=== PATIENT | male | born 1955 | race Caucasian/White ===

== ENCOUNTER 2016-08-15 08:04 | Emergency (ER) | payer BC ==
[2016-08-15 08:11] VITALS: BP 184/81; PULSE 85; RESP 20; TEMP 97.8
--- NOTE | 2016-08-15 08:20 | ED ---
Extremity Problem HPI - General Chief complaint: Extremity Problem,Nontraumatic Stated complaint: Heel Pain Time Seen by Provider: 08/15/16 08:11 Source: patient, RN notes reviewed Mode of arrival: wheelchair Limitations: no limitations - History of Present Illness Initial comments: 60-year-old male presents to the emergency department with a chief complaint of right foot pain. Patient states this started last few days. Patient states he walks he has pain when he rests he has no pain. Patient states he gets about 8- 9 out of 10. Patient states it pulls on the bottom of his foot. Patient denies any falls or injury. Patient denies any redness or swelling to the area. Patient states that he didn't do anything due to the fact that he is aware of. Patient states the pain started on Tuesday. Patient denies any leg swelling or any calf pain with this. Patient states she was concerned due to the continued pain.that he should be evaluated.Patient denies any recent fever, chills, shortness of breath, chest pain, back pain, abdominal pain, nausea vomiting, numbness or tingling, dysuria or hematuria, constipation or diarrhea, headaches or visual changes, or any other current symptoms. - Related Data Home Medications Medication Instructions Recorded Confirmed INSULIN LISPRO (HumaLOG) [HumaLOG] 0 units SQ AC-TID 06/27/15 09/01/15 Insulin Glargine [Lantus] 38 unit SQ HS 06/27/15 09/01/15 Levothyroxine Sodium [Tirosint] 100 mcg PO QAM 06/27/15 08/27/15 amLODIPine [Norvasc] 10 mg PO DAILY 06/27/15 08/27/15 cloNIDine HCL [Catapres] 0.5 mg PO BID 06/27/15 08/27/15 glipiZIDE [Glucotrol] 10 mg PO AC-BID 06/27/15 09/01/15 Atorvastatin [Lipitor] 80 mg PO HS 08/27/15 09/01/15 Enalapril [Vasotec] 2.5 mg PO BID 08/27/15 08/27/15 Febuxostat [Uloric] 40 mg PO HS 08/27/15 09/01/15 Ranitidine HCl [Zantac] 300 mg PO HS 08/27/15 08/27/15 Nystatin 100,000 Unit/gm Powd 1 applic TOPICAL BID 09/02/15 09/02/15 [Mycostatin Powder] Previous Rx's Medication Instructions Recorded Docusate [Colace] 100 mg PO BID #60 capsule 09/03/15 HYDROcodone/APAP 10-325MG [[place] 1 - 2 each PO Q4-6H PRN #90 tab 09/03/15 10] Warfarin [Coumadin] 2.5 mg PO DAILY #27 tab 09/03/15 Diazepam [Valium] 5 mg PO TID PRN #40 tab 09/04/15 Allergies Allergy/AdvReac Type Severity Reaction Status Date / Time ibuprofen [From Motrin] AdvReac can't take Verified 08/15/16 08:11 due to kidney problems Review of Systems ROS Statement: Those systems with pertinent positive or pertinent negative responses have been documented in the HPI. ROS Other: All systems not noted in ROS Statement are negative. Past Medical History Past Medical History: Diabetes Mellitus, Deep Vein Thrombosis (DVT), GERD/Reflux , Hypertension, Sleep Apnea/CPAP/BIPAP, Thyroid Disorder Additional Past Medical History / Comment(s): 05/14/15 Pt is a direct admission for septic arthritis L knee. Other hx: DVT 05/2012 L popliteal vein, chronic kidney disease, atrophic L kidney from , L and R kidney stones which he has had surgically removed and has also passed on his own, , BPH, hypothyroidism , MIGUEL ANGEL with CPAP use (10L/min), DJD, obesity, acute anemia from blood loss in the past possibley related to CKD, bilateral feet neuropathy, OA bilaeral knees and hands, carpal tunnel bilaterally, hypokalemia in past, occasional swelling of feet, [place] L ear due to hole in eardrum. super gout History of Any Multi-Drug Resistant Organisms: None Reported Past Surgical History: Ear Surgery, Joint Replacement, Orthopedic Surgery Additional Past Surgical History / Comment(s): 04/25/15 L knee injection, 2012 L kidney lithrotripsy, L kidney stones removed surgically, L eardrum patch which then blew, L achilles tendon repair, bilateral cataract removal, colonoscopy with benign polypectomy, L knee bone chips removed. fluid removed left knee from gout, total left knee 09/01/15 Past Anesthesia/Blood Transfusion Reactions: Postoperative Nausea & Vomiting ( PONV) Additional Past Anesthesia/Blood Transfusion Reaction / Comment(s): Pt had PONV following ear surgery only. He has MIGUEL ANGEL and uses CPAP at 10L/minute Past Psychological History: No Psychological Hx Reported Additional Psychological History / Comment(s): Pt resides with his spouse. He is normally independent. 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 He uses no assistive device. He drives. They have no children. He has no experience. No international travel. No animal exposures. 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 Smoking Status: Never smoker Past Alcohol Use History: Rare Past Drug Use History: None Reported - Past Family History Brother(s) Family Medical History: Cancer Father Family Medical History: Diabetes Mellitus Additional Family Medical History / Comment(s): Father after a brown recluse spider bite complication at age 72 yrs. Mother Family Medical History: Cancer Additional Family Medical History / Comment(s): Mother is living. She had breast cancer. General Exam - General Exam Comments Initial Comments: General: The patient is awake and alert, in no distress, and does not appear acutely ill. Neck: The neck is supple, there is no tenderness. Cardiovascular: There is a regular rate and rhythm. No murmur, rub or gallop is appreciated. Respiratory: Lungs are clear to auscultation, respirations are non-labored, breath sounds are equal. No wheezes, stridor, rales, or rhonchi. Musculoskeletal: Sensation intact with 2+ pulses throughout. Full range of motion of the right foot and ankle with no swelling or erythema noted. Patient does have pain with flexion and extension of the foot. 5/5 muscle strength testing. Neurological: CN II-XII intact, There are no obvious motor or sensory deficits. Coordination appears grossly intact. Speech is normal. Skin: Skin is warm and dry and no rashes or lesions are noted. Psychiatric: Normal mood and affect. Limitations: no limitations Course Vital Signs 08/15/16 08:09 Temperature 97.8 F Pulse Rate 85 Respiratory 20 Rate Blood Pressure 184/81 O2 Sat by Pulse 98 Oximetry Medical Decision Making - Medical Decision Making 60-year-old male presents to emergency 5 chief complaint of right heel pain. There is suspicion for plantar fasciitis patient's cause. X-rays reviewed and does not show any acute process. This time we discussed ice the foot we discussed rest. We discussed using supportive shoes. We discussed return parameters and follow-up. Patient stated that he understood and all questions have been answered. He will be discharged home. Disposition Clinical Impression: Plantar fasciitis of right foot, Calcaneal spur of right foot Disposition: HOME SELF-CARE Condition: Stable Instructions: Plantar Fasciitis (ED) Additional Instructions: Please use medication as discussed. Please follow up with family doctor if symptoms have not improved over the next two days. Please return to the emergency room if your symptoms increase or worsen or for any other concerns. Referrals: Abiel Staton MD [Primary Care Provider] - 1-2 days Time of Disposition: 08:53
--- NOTE | 2016-08-15 08:47 | XR ---
EXAMINATION TYPE: XR foot complete RT DATE OF EXAM: 08/15/2016 8:39 AM COMPARISON: NONE HISTORY: 60-year-old male medial right foot pain near the calcaneus. TECHNIQUE: 3 views FINDINGS: A moderate-sized plantar calcaneal spur. Additional posterior calcaneal spur. Vascular calcifications suggest underlying diabetes and chronic kidney disease. Mild degenerative spurring at the first MTP joint. Bipartite fibular sesamoid noted. No acute fracture, subluxation, or dislocation seen. IMPRESSION: 1. No acute osseous abnormality seen. 2. Moderate sized plantar calcaneal spur. Mild first MTP joint OA and incidental bipartite fibular se samoid. 3. Vascular calcifications suggest underlying diabetes and/or chronic kidney disease.
== END 2016-08-15 09:00 | disposition home or self-care (01) ==
LOC: EC 08:04
DX: M72.2 Plantar fascial fibromatosis (principal); M77.31 Calcaneal spur, right foot; E11.9 Type 2 diabetes mellitus without complications; K21.9 Gastro-esophageal reflux disease without esophagitis; I10 Essential (primary) hypertension; M19.90 Unspecified osteoarthritis, unspecified site; E03.9 Hypothyroidism, unspecified; G62.9 Polyneuropathy, unspecified; M10.9 Gout, unspecified; Z79.4 Long term (current) use of insulin; Z79.899 Other long term (current) drug therapy; Z88.6 Allergy status to analgesic agent
CPT/HCPCS: 99283

== ENCOUNTER → 2016-12-12 | Outpatient (CLI) | payer BC ==
[2016-12-12 12:24] LABS: Calcium 9.1 mg/dL (8.4-10.2); Potassium 5.5 mmol/L (3.5-5.1); Total Bilirubin 0.4 mg/dL (0.2-1.3); Total Protein 6.8 g/dL (6.3-8.2)
== END | disposition home or self-care (01) ==
LOC: LABMAIN 09:49
PROVIDERS: ATTEND Family Medicine
DX: E11.65 Type 2 diabetes mellitus with hyperglycemia (principal)
CPT/HCPCS: 36415; 80053; 80061; 83036

== ENCOUNTER → 2017-05-12 | Outpatient (CLI) | payer BC ==
[2017-05-12 10:14] LABS: Appearance,Urine Clear (Clear); Bilirubin,Urine Negative (Negative); Blood,Urine Negative (Negative); Color,Urine Light Yellow; Glucose,Urine (UA) Negative (Negative); Ketones,Urine Negative (Negative); Leukocyte Esterase,Urine Negative (Negative); Nitrite,Urine Negative (Negative); Protein,Urine Negative (Negative); Specific Gravity,Urine 1.012 (1.001-1.035); Urobilinogen,Urine <2.0 mg/dL (<2.0)
[2017-05-12 10:15] LABS: Anisocytosis Slight; Basophils # (A) 0.1 k/uL (0-0.2); Basophils % (A) 1 %; Eosinophils # (A) 0.3 k/uL (0-0.7); Eosinophils % (A) 3 %; HCT 38.4 % (39.0-53.0); HGB 11.4 gm/dL (13.0-17.5); Hypochromasia Moderate; Lymphocytes % (A) 24 %; MCH 28.7 pg (25.0-35.0); MCHC 29.7 g/dL (31.0-37.0); MCV 96.4 fL (80.0-100.0); Monocytes # (A) 0.3 k/uL (0-1.0); Monocytes % (A) 4 %; Neutrophils # (A) 5.5 k/uL (1.3-7.7); Neutrophils % (A) 67 %; Platelet Count 270 k/uL (150-450); RBC 3.98 m/uL (4.30-5.90); RDW 16.6 % (11.5-15.5); WBC 8.3 k/uL (3.8-10.6)
[2017-05-12 10:33] LABS: Albumin 3.9 g/dL (3.5-5.0); Calcium 9.3 mg/dL (8.4-10.2); Total Bilirubin 0.3 mg/dL (0.2-1.3); Total Protein 6.8 g/dL (6.3-8.2)
[2017-05-12 10:36] LABS: Potassium 5.7 mmol/L (3.5-5.1)
[2017-05-12 11:01] LABS: Prostate Specific Antigen 0.76 ng/mL (0.00-4.00)
[2017-05-12 15:58] LABS: Hemoglobin A1C 7.8 % (4.0-6.0)
== END | disposition home or self-care (01) ==
LOC: LABWHC1 09:42
PROVIDERS: ATTEND Family Medicine
DX: Z00.00 Encounter for general adult medical examination without abnormal findings (principal); E11.65 Type 2 diabetes mellitus with hyperglycemia
CPT/HCPCS: 36415; 80053; 80061; 81003; 82043; 82570; 83036; 84153; 84443; 85025

== ENCOUNTER → 2017-07-11 | Outpatient (CLI) | payer BC ==
[2017-07-11 14:52] LABS: HCT 34.7 % (39.0-53.0); HGB 10.7 gm/dL (13.0-17.5); Hypochromasia Moderate; MCHC 30.7 g/dL (31.0-37.0); MCV 94.3 fL (80.0-100.0); Mean Platelet Volume 7.3; Platelet Count 255 k/uL (150-450); RBC 3.68 m/uL (4.30-5.90); RDW 15.3 % (11.5-15.5); WBC 8.4 k/uL (3.8-10.6)
== END | disposition home or self-care (01) ==
LOC: LABWHC1 14:15
PROVIDERS: ATTEND Family Medicine
DX: E03.9 Hypothyroidism, unspecified (principal); D64.9 Anemia, unspecified
CPT/HCPCS: 36415; 84443; 85027

== ENCOUNTER → 2017-10-22 | Outpatient (CLI) | payer BC ==
[2017-10-22 12:01] LABS: HCT 35.2 % (39.0-53.0); HGB 11.1 gm/dL (13.0-17.5); Hypochromasia Slight; MCH 29.6 pg (25.0-35.0); MCHC 31.5 g/dL (31.0-37.0); Mean Platelet Volume 6.5; Platelet Count 282 k/uL (150-450); RBC 3.75 m/uL (4.30-5.90); RDW 15.5 % (11.5-15.5); WBC 7.9 k/uL (3.8-10.6)
[2017-10-22 12:11] LABS: Potassium 6.1 mmol/L (3.5-5.1); Total Bilirubin 0.4 mg/dL (0.2-1.3); Total Protein 6.6 g/dL (6.3-8.2)
[2017-10-22 12:26] LABS: T4, Free (Free Thyroxine) 0.92 ng/dL (0.78-2.19)
[2017-10-22 19:18] LABS: Hemoglobin A1C 8.8 % (4.0-6.0)
== END | disposition home or self-care (01) ==
LOC: LABWHC1 11:10
PROVIDERS: ATTEND Family Medicine
DX: E11.65 Type 2 diabetes mellitus with hyperglycemia (principal); E03.9 Hypothyroidism, unspecified; D50.9 Iron deficiency anemia, unspecified; E29.1 Testicular hypofunction
CPT/HCPCS: 36415; 80053; 80061; 83036; 84402; 84403; 84439; 84443; 85027